=== PATIENT | female | born 1970 | race Caucasian/White ===

== ENCOUNTER 2016-10-23 00:38 | Emergency (ER) | payer OTHER ==
[~2016-10-23 00:38] MED LIST: ATARAX25 MG PO; COREG3.125 MG PO; DUONEB 2.5-0.5M1 AMP IH; GABAPENTIN600 MG PO; LASIX40 MG PO; LISINOPRIL 20MG20 MG PO; NITROQUIK SL0.4 MG PO; NOVOLIN R100 UNIT/2 SQ; PERCOCET 10/321 EACH PO; PHENERGAN25 M1 PO; VENTOLIN HFA IN18 GM IH; ZYLOPRIM300 MG PO
== END 2016-10-23 02:53 | disposition home or self-care (01) ==
LOC: FER 00:38
DX: M25.561 Pain in right knee (principal); J44.9 Chronic obstructive pulmonary disease, unspecified; E11.22 Type 2 diabetes mellitus with diabetic chronic kidney disease; N18.3 Chronic kidney disease, stage 3 (moderate); Z79.4 Long term (current) use of insulin; Z90.49 Acquired absence of other specified parts of digestive tract; Z90.710 Acquired absence of both cervix and uterus; Z88.1 Allergy status to other antibiotic agents; Z88.5 Allergy status to narcotic agent; Z91.041 Radiographic dye allergy status; Z88.0 Allergy status to penicillin; Z88.6 Allergy status to analgesic agent; Z79.899 Other long term (current) drug therapy
CPT/HCPCS: J1170

== ENCOUNTER 2017-02-23 21:05 | Inpatient (IN) | payer OTHER ==
[~2017-02-23] VITALS: Ht 165.1 cm; Wt 135.3 kg
[2017-02-24 00:38] LABS: ALBUMIN 4.2 g/dL (3.5-5.0); BILIRUBIN - TOTAL 0.6 mg/dL (0.1-1.0); GLOBULIN (CALCULATION) 2.9 g/dL (2.2-4.2); LACTIC ACID 1.2 mmol/L (0.5-2.2); TOTAL PROTEIN 7.1 g/dL (6.4-8.3)
[2017-02-24 00:40] LABS: CKMB 1.48 ng/mL (0.97-4.94); TROPONIN T < 0.010 ng/mL
[2017-02-24 01:22] LABS: PROTHROMBIN TIME 14.3 SECONDS (11.4-13.2); PTT 17.1 SECONDS (24.3-32.1)
[2017-02-24 01:23] LABS: INR 1.4 (0.9-1.2)
[2017-02-24 01:32] LABS: PRO-BNP 33 pg/mL (0-125)
[2017-02-24 03:31] LABS: BASOPHIL 0 % (0-2); EOSINOPHIL 0.2 % (0-5); HCT 34.6 % (37.0-47.0); LYMPHOCYTE 9.8 % (15-48); MCHC 31.8 g/dL (32.0-36.0); MCV 84.8 fL (78.0-100.0); MONOCYTE 0.3 % (0-12); MPV 9.9 fL (6.0-9.5); NEUTROPHIL 89.7 % (41-80); PLT 113 K/uL (150-400); RBC 4.08 M/uL (4.20-5.40); RDW 16.1 % (11.5-14.0); WBC 5.8 K/uL (4.0-10.5)
[2017-02-24 07:06] LABS: BASOPHIL 0 % (0-2); EOSINOPHIL 0 % (0-5); HCT 31.5 % (37.0-47.0); HGB 10.1 g/dl (12.5-16.0); LYMPHOCYTE 14.3 % (15-48); MCH 27.7 pg (25.0-31.0); MCHC 32.1 g/dL (32.0-36.0); MCV 86.5 fL (78.0-100.0); MONOCYTE 1.6 % (0-12); MPV 9.5 fL (6.0-9.5); NEUTROPHIL 84.1 % (41-80); PLT 96 K/uL (150-400); RBC 3.64 M/uL (4.20-5.40); RDW 16.1 % (11.5-14.0); WBC 4.3 K/uL (4.0-10.5)
[2017-02-24 07:15] LABS: INR 1.25 (0.9-1.2); PROTHROMBIN TIME 14.7 SECONDS (11.4-13.2)
[2017-02-24 07:22] LABS: ALBUMIN 3.6 g/dL (3.5-5.0); BILIRUBIN - TOTAL 0.3 mg/dL (0.1-1.0); CREATININE 0.9 mg/dL (0.5-1.0); GLOBULIN (CALCULATION) 2.8 g/dL (2.2-4.2); POTASSIUM 4.5 mmol/L (3.5-5.1); TOTAL PROTEIN 6.4 g/dL (6.4-8.3)
[2017-02-25 04:30] LABS: BASOPHIL 0 % (0-2); EOSINOPHIL 1.1 % (0-5); HCT 29.3 % (37.0-47.0); HGB 9.1 g/dl (12.5-16.0); LYMPHOCYTE 38.7 % (15-48); MCH 27.4 pg (25.0-31.0); MCHC 31.1 g/dL (32.0-36.0); MCV 88.3 fL (78.0-100.0); MONOCYTE 6.7 % (0-12); MPV 9.3 fL (6.0-9.5); NEUTROPHIL 53.5 % (41-80); PLT 79 K/uL (150-400); RBC 3.32 M/uL (4.20-5.40); RDW 15.9 % (11.5-14.0); WBC 3.8 K/uL (4.0-10.5)
[2017-02-25 04:48] LABS: ALBUMIN 3.9 g/dL (3.5-5.0); BILIRUBIN - TOTAL 0.3 mg/dL (0.1-1.0); CREATININE 0.9 mg/dL (0.5-1.0); GLOBULIN (CALCULATION) 2.3 g/dL (2.2-4.2); MAGNESIUM 2.19 mg/dL (1.40-2.10); POTASSIUM 3.5 mmol/L (3.5-5.1); TOTAL PROTEIN 6.2 g/dL (6.4-8.3)
[2017-02-25 14:40] LABS: NEUTROPHILS(M) 52 % (41-80)
[2017-02-25 14:41] LABS: LYMPHOCYTE(M) 36 % (15-48); MONOCYTE(M) 12 % (0-12); PLATELETS ON SMEAR DECREASED
[2017-02-26 10:03] LABS: BASOPHIL 0 % (0-2); HCT 27.8 % (37.0-47.0); HGB 8.5 g/dl (12.5-16.0); LYMPHOCYTE 31.5 % (15-48); MCH 27.5 pg (25.0-31.0); MCHC 30.6 g/dL (32.0-36.0); MONOCYTE 9.1 % (0-12); MPV 9.6 fL (6.0-9.5); NEUTROPHIL 56.4 % (41-80); PLT 69 K/uL (150-400); RBC 3.09 M/uL (4.20-5.40); RDW 15.7 % (11.5-14.0)
[2017-02-26 10:13] LABS: ALBUMIN 3.4 g/dL (3.5-5.0); BILIRUBIN - TOTAL 0.3 mg/dL (0.1-1.0); CREATININE 0.9 mg/dL (0.5-1.0); GLOBULIN (CALCULATION) 2.3 g/dL (2.2-4.2); POTASSIUM 4.7 mmol/L (3.5-5.1); TOTAL PROTEIN 5.7 g/dL (6.4-8.3)
[2017-02-26 11:55] LABS: BAND 2 % (0-10); EOSINOPHIL(M) 2 % (0-5); LYMPHOCYTE(M) 28 % (15-48); MONOCYTE(M) 2 % (0-12); NEUTROPHILS(M) 66 % (41-80); TOTAL CELL COUNT 50
[2017-02-26 11:56] LABS: ANISOCYTOSIS SLIGHT; PLATELET ESTIMATE DECREASED; PLATELET MORPHOLOGY NORMAL
[2017-02-26 12:03] LABS: HCT 30.9 % (37.0-47.0); HGB 9.2 g/dl (12.5-16.0); MCH 26.5 pg (25.0-31.0); MCHC 29.8 g/dL (32.0-36.0); MPV 9.3 fL (6.0-9.5); RBC 3.47 M/uL (4.20-5.40); RDW 15.8 % (11.5-14.0)
[2017-02-26 12:17] LABS: INR 1.14 (0.9-1.2); PROTHROMBIN TIME 13.7 SECONDS (11.4-13.2)
[2017-02-26 12:19] LABS: D-DIMER 1.94 ug/mLFEU (0.00-0.41)
[2017-02-26 12:20] LABS: WBC 2.5 K/uL (4.0-10.5)
== END 2017-02-26 17:20 | disposition other institution (70) | DRG 372 ==
LOC: FER 21:05 → FMS 02-24 02:40
PROVIDERS: Emergency Medicine Emergency Medical Services; Internal Medicine; ADMIT Internal Medicine
DX: A04.7 Enterocolitis due to Clostridium difficile (principal); Z68.42 Body mass index [BMI] 45.0-49.9, adult; I50.22 Chronic systolic (congestive) heart failure; K56.60 Unspecified intestinal obstruction; D69.6 Thrombocytopenia, unspecified; J98.11 Atelectasis; D64.9 Anemia, unspecified; Z86.718 Personal history of other venous thrombosis and embolism; K57.90 Diverticulosis of intestine, part unspecified, without perforation or abscess without bleeding; J44.9 Chronic obstructive pulmonary disease, unspecified; E11.9 Type 2 diabetes mellitus without complications; G47.33 Obstructive sleep apnea (adult) (pediatric); Z86.711 Personal history of pulmonary embolism; I73.81 Erythromelalgia; K74.60 Unspecified cirrhosis of liver; Z88.0 Allergy status to penicillin; Z88.8 Allergy status to other drugs, medicaments and biological substances; E66.01 Morbid (severe) obesity due to excess calories
CPT/HCPCS: 36415; 71010; 74000; 74020; 80053; 82150; 82550; 82553; 82962; 83605; 83690; 83735; 83880; 84100; 84484; 85025; 85379; 85610; 85730; 87040; 87045; 87046; 87205; 87328; 87337; 87493; 93005; 94640; 94660; 94762; 96372; C9113; J0500; J1170; J1644; J1815; J2060; J2930; J3010; J3243; J3360

== ENCOUNTER 2020-06-06 14:41 | Day surgery (SDCO) | payer OTHER ==
[~2020-06-06] VITALS: Ht 165.1 cm; Wt 116.8 kg
[~2020-06-06 14:41] MED LIST changes: +ALDACTONE100 MG PO; +ALLOPURINOL300 MG PO; +AMMONIUM LACTA225 GM TOP; +BACTROBAN NASAL1 GM TOP; +BUMETANIDE2 MG PO; +CLEOCIN300 MG PO; +COMBIVENT RESPIM4 GM INH; +COREG 6.25MG6.25 MG PO; +DEPAKOTE250 MG PO; +DIFLUCAN 100MG100 MG PO; +DUONEB 2.5-0.5M1 AMP NEB; +ELIQUIS2.5 MG PO; +HUMALOG100 UNIT/1 SC; +K-DUR20 MEQ PO; +KLONOPIN1 MG PO; +LANTUS **100 UNITS/ SC; +LASIX80 MG PO; +LEVAQUIN750 MG PO; +LEVEMIR VI100 UNITS/ SC; +MAG-OXIDE 400M400 MG PO; +NITROSTAT0.4 MG SL; +NOVOLIN SC; +OXY-IR 5MG5 MG PO; +OXYCODONE HCL15 MG PO; +PERCOCET 10-321 EACH PO; +PREDNISONE 20MG20 MG PO; +PREDNISONE5 MG PO; +PROMETHAZINE HC25 MG PR; +PROTONIX 40MG T40 MG PO; +VISTARIL25 MG PO; +WELCHOL625 MG PO
[2020-06-06 16:08] LABS: BASOPHIL 0.6 % (0-2); EOSINOPHIL 0.7 % (0-5); HCT 41.1 % (37.0-47.0); LYMPHOCYTE 19.9 % (15-48); MCH 26.6 pg (25.0-31.0); MCHC 31.6 g/dL (32.0-36.0); MCV 84.2 fL (78.0-100.0); MONOCYTE 6.7 % (0-12); MPV 10.5 fL (6.0-9.5); NEUTROPHIL 71.7 % (41-80); NRBC 0; PLT 124 K/uL (150-400); RBC 4.88 M/uL (4.20-5.40); RDW 15.5 % (11.5-14.0); WBC 7.1 K/uL (4.0-10.5)
[2020-06-06 16:09] LABS: BILIRUBIN NEGATIVE (NEGATIVE); BLOOD NEGATIVE Ery/uL (NEGATIVE); CLARITY CLEAR (CLEAR); COLOR YELLOW (YELLOW); GLUCOSE (U) 1+ mg/dL (NORMAL); LEUKOCYTES NEGATIVE Leu/uL (NEGATIVE); NITRITE NEGATIVE (NEGATIVE); PROTEIN 2+ mg/dL (NEGATIVE); UROBILINOGEN 0.2 mg/dL (0.2-1.0)
[2020-06-06 16:20] LABS: INR 1.12 (0.9-1.2); PROTHROMBIN TIME 13.7 SECONDS (11.4-13.6); PTT 25.4 SECONDS (22.2-34.7)
[2020-06-06 16:25] LABS: BILIRUBIN - TOTAL 0.6 mg/dL (0.2-1.0); BUN/CREAT RATIO (CALC) 18.6 RATIO; CREATININE 1.02 mg/dL (0.51-0.95); GLOBULIN (CALCULATION) 3.2 g/dL; POTASSIUM 3.6 mmol/L (3.5-5.1); TOTAL PROTEIN 7.2 g/dL (6.4-8.2)
[2020-06-06 16:40] LABS: SQUAMOUS EPITHELIAL CELLS RARE
[2020-06-06] MEDS ORDERED: BASAGLAR (23:58)
[2020-06-07] MEDS ORDERED: OXYCODONE HCL10 MG PO
[2020-06-07 06:06] LABS: BASOPHIL 0.4 % (0-2); EOSINOPHIL 1.7 % (0-5); HCT 37.7 % (37.0-47.0); HGB 11.7 g/dl (12.5-16.0); LYMPHOCYTE 25.5 % (15-48); MCH 26.8 pg (25.0-31.0); MCV 86.5 fL (78.0-100.0); MONOCYTE 5.1 % (0-12); MPV 10.7 fL (6.0-9.5); NEUTROPHIL 66.9 % (41-80); NRBC 0; PLT 107 K/uL (150-400); RBC 4.36 M/uL (4.20-5.40); RDW 15.9 % (11.5-14.0); WBC 6.9 K/uL (4.0-10.5)
[2020-06-07 06:58] LABS: ALBUMIN 3.2 g/dL (3.4-5.0); BILIRUBIN - TOTAL 0.3 mg/dL (0.2-1.0); BUN/CREAT RATIO (CALC) 19.6 RATIO; CREATININE 1.12 mg/dL (0.51-0.95); GLOBULIN (CALCULATION) 3.3 g/dL; POTASSIUM 3.7 mmol/L (3.5-5.1); TOTAL PROTEIN 6.5 g/dL (6.4-8.2)
--- NOTE | 2020-06-07 15:02 | NUR ---
PT IS A HIGH RISK FOR READMISSION PER LACE SCORE OVER 24. PLEASE ADVISE OF ANY D/C NEEDS
--- NOTE | 2020-06-07 15:03 | NUR ---
PT REPORTS SHE LIVES WITH SPOUSE SHE IS INDEPENDENT WITH ADL;S PT DOES HAVE A HIGH LACE SCORE DUE TO MULTIPLE COMORBITITIES
[2020-06-08 05:37] LABS: BASOPHIL 0.4 % (0-2); EOSINOPHIL 2.9 % (0-5); HCT 34.7 % (37.0-47.0); HGB 10.8 g/dl (12.5-16.0); LYMPHOCYTE 24.5 % (15-48); MCH 26.7 pg (25.0-31.0); MCHC 31.1 g/dL (32.0-36.0); MCV 85.9 fL (78.0-100.0); MONOCYTE 7.5 % (0-12); MPV 10.8 fL (6.0-9.5); NEUTROPHIL 64.3 % (41-80); NRBC 0; RBC 4.04 M/uL (4.20-5.40); RDW 15.3 % (11.5-14.0); WBC 5.6 K/uL (4.0-10.5)
[2020-06-08 05:49] LABS: PLT 86 K/uL (150-400)
[2020-06-08 05:59] LABS: ALBUMIN 2.9 g/dL (3.4-5.0); BILIRUBIN - TOTAL 0.4 mg/dL (0.2-1.0); BUN/CREAT RATIO (CALC) 19.1 RATIO; CREATININE 1.1 mg/dL (0.51-0.95); GLOBULIN (CALCULATION) 2.9 g/dL; TOTAL PROTEIN 5.8 g/dL (6.4-8.2)
--- NOTE | 2020-06-08 14:37 | NUR ---
PATIENT REQUESTED TO SEE CHARGE NURSE, STATED THAT THE NURSE NURA WAS "RUFF" WHEN ASKED BY CHARGE NURSE HOW WAS NURA JUANA PATIENT STATED THAT NURA JUST DIDN'T TALK TO HER NICE. SHE WAS TOLD BY THAT SHE WAS BEING DISCHARGED PRIOR TO THIS COMPLANT. HOUSE WAS NOTIFIED, PATIENT REQUEST TO SEE MD FOR ONE TIME DOSE OF PHENAGREN, AND BENADRYL. MD ORDERED BOTH ONE TIME DOSES. PATIENT STATED SHE WOULD CALL HER TO COME GET HER.
--- NOTE | 2020-06-08 16:44 | NUR ---
06/08/20 A referral was made to [facility] at the time of discharge on 05/05/2020. [facility] reports patient did not response to multiple phone calls to arrange a visit. No new HHR referrals were received at the time of discharge.
== END 2020-06-08 16:36 | disposition home or self-care (01) ==
LOC: FER 14:41 → FMS 20:46
PROVIDERS: Emergency Medicine; Nurse Practitioner; Nurse Practitioner Adult Health; ADMIT Internal Medicine
DX: R07.89 Other chest pain (principal); E11.65 Type 2 diabetes mellitus with hyperglycemia; E11.22 Type 2 diabetes mellitus with diabetic chronic kidney disease; N18.30 Chronic kidney disease, stage 3 unspecified; I50.9 Heart failure, unspecified; I25.10 Atherosclerotic heart disease of native coronary artery without angina pectoris; G47.33 Obstructive sleep apnea (adult) (pediatric); G89.4 Chronic pain syndrome; K59.00 Constipation, unspecified; R06.02 Shortness of breath; R79.1 Abnormal coagulation profile; I25.2 Old myocardial infarction; F41.1 Generalized anxiety disorder; Z20.828 Contact with and (suspected) exposure to other viral communicable diseases; F32.9 Major depressive disorder, single episode, unspecified; K21.9 Gastro-esophageal reflux disease without esophagitis; E11.40 Type 2 diabetes mellitus with diabetic neuropathy, unspecified; E11.43 Type 2 diabetes mellitus with diabetic autonomic (poly)neuropathy; K31.84 Gastroparesis; M10.9 Gout, unspecified; J44.9 Chronic obstructive pulmonary disease, unspecified; E66.9 Obesity, unspecified; Z68.41 Body mass index [BMI] 40.0-44.9, adult; Z86.73 Personal history of transient ischemic attack (TIA), and cerebral infarction without residual deficits; Z91.14 Patient's other noncompliance with medication regimen; Z79.01 Long term (current) use of anticoagulants; Z79.4 Long term (current) use of insulin; Z79.899 Other long term (current) drug therapy; Z88.0 Allergy status to penicillin; Z88.1 Allergy status to other antibiotic agents; Z88.6 Allergy status to analgesic agent; Z88.8 Allergy status to other drugs, medicaments and biological substances; Z91.041 Radiographic dye allergy status; Z99.81 Dependence on supplemental oxygen; Z90.5 Acquired absence of kidney
CPT/HCPCS: 36415; 70450; 71045; 74022; 80053; 81001; 82962; 83880; 84484; 85025; 85379; 85610; 85730; 93005; G0378; J1170; J1200; J2550; Q0169; U0002

== ENCOUNTER 2020-06-21 19:09 | Emergency (ER) | payer OTHER ==
[~2020-06-21 19:09] MED LIST changes: +BASAGLAR; +OXYCODONE HCL10 MG PO
[2020-06-21 20:49] LABS: BASOPHIL 0.2 % (0-2); EOSINOPHIL 4.5 % (0-5); HCT 33.5 % (37.0-47.0); HGB 10.9 g/dl (12.5-16.0); LYMPHOCYTE 24.4 % (15-48); MCH 27.5 pg (25.0-31.0); MCHC 32.5 g/dL (32.0-36.0); MCV 84.6 fL (78.0-100.0); MONOCYTE 5.7 % (0-12); MPV 11.3 fL (6.0-9.5); NEUTROPHIL 64.8 % (41-80); NRBC 0; RBC 3.96 M/uL (4.20-5.40); WBC 5.1 K/uL (4.0-10.5)
[2020-06-21 20:51] LABS: INR 1.19 (0.9-1.2); PROTHROMBIN TIME 14.3 SECONDS (11.4-13.6); PTT 27.9 SECONDS (22.2-34.7)
[2020-06-21 20:52] LABS: ALBUMIN 3.1 g/dL (3.4-5.0); BILIRUBIN - TOTAL 0.4 mg/dL (0.2-1.0); BUN/CREAT RATIO (CALC) 8.2 RATIO; C-REACTIVE PROTEIN 3.6 mg/dL (<=0.90); CREATININE 0.85 mg/dL (0.51-0.95); GLOBULIN (CALCULATION) 3.6 g/dL; POTASSIUM 3.8 mmol/L (3.5-5.1); TOTAL PROTEIN 6.7 g/dL (6.4-8.2)
[2020-06-21 20:54] LABS: PLT 99 K/uL (150-400)
[2020-06-21 20:55] LABS: LACTIC ACID 1.7 mmol/L (0.4-1.9)
[2020-06-21 21:01] LABS: PRO-BNP 298 pg/mL (<125)
[2020-06-21 21:27] LABS: BILIRUBIN NEGATIVE (NEGATIVE); BLOOD NEGATIVE Ery/uL (NEGATIVE); CLARITY CLEAR (CLEAR); COLOR YELLOW (YELLOW); GLUCOSE (U) 1+ mg/dL (NORMAL); LEUKOCYTES NEGATIVE Leu/uL (NEGATIVE); NITRITE NEGATIVE (NEGATIVE); PROTEIN 2+ mg/dL (NEGATIVE); UROBILINOGEN 0.2 mg/dL (0.2-1.0)
[2020-06-21 21:36] LABS: BACTERIA TRACE
== END 2020-06-21 22:18 | disposition home or self-care (01) ==
LOC: FER 19:09
PROVIDERS: Emergency Medicine
DX: I11.0 Hypertensive heart disease with heart failure (principal); I50.9 Heart failure, unspecified; J44.9 Chronic obstructive pulmonary disease, unspecified; I25.10 Atherosclerotic heart disease of native coronary artery without angina pectoris; E11.9 Type 2 diabetes mellitus without complications; E66.9 Obesity, unspecified; Z99.81 Dependence on supplemental oxygen; Z79.899 Other long term (current) drug therapy; Z88.0 Allergy status to penicillin; Z88.1 Allergy status to other antibiotic agents; Z88.5 Allergy status to narcotic agent; Z88.6 Allergy status to analgesic agent; Z88.8 Allergy status to other drugs, medicaments and biological substances; Z91.041 Radiographic dye allergy status
CPT/HCPCS: 36415; 36600; 71045; 80053; 81001; 82803; 83605; 83880; 84484; 85025; 85610; 85730; 86140; J1170; J1642; J2550

== ENCOUNTER 2020-06-22 22:30 | Emergency (ER) | payer OTHER ==
[2020-06-23 00:49] LABS: BASOPHIL 0.4 % (0-2); HCT 34.5 % (37.0-47.0); HGB 11.1 g/dl (12.5-16.0); MCH 26.8 pg (25.0-31.0); MCHC 32.2 g/dL (32.0-36.0); MCV 83.3 fL (78.0-100.0); MONOCYTE 5.8 % (0-12); MPV 10.6 fL (6.0-9.5); NEUTROPHIL 66.4 % (41-80); NRBC 0; PLT 99 K/uL (150-400); RBC 4.14 M/uL (4.20-5.40); RDW 15.3 % (11.5-14.0); WBC 5.6 K/uL (4.0-10.5)
[2020-06-23 00:52] LABS: INR 1.17 (0.9-1.2); PROTHROMBIN TIME 14.1 SECONDS (11.4-13.6)
[2020-06-23 01:00] LABS: ALBUMIN 3.2 g/dL (3.4-5.0); BILIRUBIN - TOTAL 0.3 mg/dL (0.2-1.0); BUN/CREAT RATIO (CALC) 8.3 RATIO; CREATININE 0.96 mg/dL (0.51-0.95); GLOBULIN (CALCULATION) 3.5 g/dL; POTASSIUM 3.4 mmol/L (3.5-5.1); TOTAL PROTEIN 6.7 g/dL (6.4-8.2)
[2020-06-23 01:09] LABS: PRO-BNP 62 pg/mL (<125)
== END 2020-06-23 03:45 | disposition home or self-care (01) ==
LOC: FER 22:30
PROVIDERS: Emergency Medicine
DX: I50.9 Heart failure, unspecified (principal); D69.6 Thrombocytopenia, unspecified; E11.22 Type 2 diabetes mellitus with diabetic chronic kidney disease; N18.4 Chronic kidney disease, stage 4 (severe); J44.9 Chronic obstructive pulmonary disease, unspecified; Z79.01 Long term (current) use of anticoagulants; Z99.81 Dependence on supplemental oxygen; Z88.0 Allergy status to penicillin; Z88.1 Allergy status to other antibiotic agents; Z88.6 Allergy status to analgesic agent; Z88.5 Allergy status to narcotic agent; Z91.041 Radiographic dye allergy status; Z91.040 Latex allergy status
CPT/HCPCS: 36415; 71045; 80053; 83880; 84484; 85025; 85610; 93005; J1642; J2550

== ENCOUNTER 2020-07-04 23:33 | Inpatient (IN) | payer OTHER ==
[~2020-07-04] VITALS: Ht 165.1 cm; Wt 126.3 kg
[2020-07-05 01:10] LABS: CORONAVIRUS 2019 SARS-COV-2 NEGATIVE (NEGATIVE); INFLUENZA A NAA NEGATIVE (NEGATIVE)
[2020-07-05 03:22] LABS: BILIRUBIN NEGATIVE (NEGATIVE); BLOOD NEGATIVE Ery/uL (NEGATIVE); CLARITY CLEAR (CLEAR); COLOR YELLOW (YELLOW); GLUCOSE (U) 1+ mg/dL (NORMAL); LEUKOCYTES TRACE Leu/uL (NEGATIVE); NITRITE NEGATIVE (NEGATIVE); PROTEIN 2+ mg/dL (NEGATIVE); UROBILINOGEN 0.2 mg/dL (0.2-1.0); pH 7.5 (5.0-9.0)
[2020-07-05 03:24] LABS: BASOPHIL 0.3 % (0-2); EOSINOPHIL 2.7 % (0-5); HCT 33.2 % (37.0-47.0); HGB 10.3 g/dl (12.5-16.0); LYMPHOCYTE 17.8 % (15-48); MCH 26.9 pg (25.0-31.0); MCV 86.7 fL (78.0-100.0); MONOCYTE 5.8 % (0-12); MPV 10.6 fL (6.0-9.5); NEUTROPHIL 72.9 % (41-80); NRBC 0; RBC 3.83 M/uL (4.20-5.40); RDW 15.5 % (11.5-14.0); WBC 6.4 K/uL (4.0-10.5)
[2020-07-05 03:30] LABS: BACTERIA 2+; YEAST PRESENT
[2020-07-05 03:31] LABS: AMORPHOUS URATES CRYSTALS TRACE
[2020-07-05 03:41] LABS: PLT 69 K/uL (150-400)
[2020-07-05 03:44] LABS: PRO-BNP 74 pg/mL (<125)
[2020-07-05 03:59] LABS: ALBUMIN 2.6 g/dL (3.4-5.0); BILIRUBIN - TOTAL 0.3 mg/dL (0.2-1.0); CREATININE 0.66 mg/dL (0.51-0.95); GLOBULIN (CALCULATION) 2.7 g/dL; POTASSIUM 3.3 mmol/L (3.5-5.1); TOTAL PROTEIN 5.3 g/dL (6.4-8.2)
[2020-07-05 08:38] LABS: RETICULOCYTE COUNT 2.8 % (1.0-2.0)
[2020-07-05 09:00] LABS: IRON % SATURATION 13.1 %SAT (20-50)
[2020-07-05 11:28] LABS: FOLIC ACID (SERUM) 4.2 ng/mL (8.6-58.9)
--- NOTE | 2020-07-05 12:48 | NUR ---
07/05/20 Ms. Chilel lives at home with her spouse. She has a rollator, trilogy, 02, w/c, and 3in1. A referral was made to [facility] per patient choice in anticipation of discharge on 07/06. Affliation explained. Report given to SYEDA Hercules RN.
[2020-07-05 18:26] LABS: BUN/CREAT RATIO (CALC) 22.4 RATIO; CREATININE 0.85 mg/dL (0.51-0.95); POTASSIUM 5.2 mmol/L (3.5-5.1)
[2020-07-06 05:52] LABS: BASOPHIL 0.1 % (0-2); EOSINOPHIL 0.3 % (0-5); HGB 9.8 g/dl (12.5-16.0); LYMPHOCYTE 15.5 % (15-48); MCH 27.1 pg (25.0-31.0); MCHC 31.6 g/dL (32.0-36.0); MCV 85.6 fL (78.0-100.0); MPV 11.1 fL (6.0-9.5); NEUTROPHIL 75.8 % (41-80); RBC 3.62 M/uL (4.20-5.40); RDW 15.3 % (11.5-14.0); WBC 6.7 K/uL (4.0-10.5)
[2020-07-06 06:00] LABS: PLT 64 K/uL (150-400)
[2020-07-06 06:11] LABS: PRO-BNP 342 pg/mL (<125)
[2020-07-06 06:36] LABS: BUN/CREAT RATIO (CALC) 19.4 RATIO; CREATININE 0.98 mg/dL (0.51-0.95); POTASSIUM 4.1 mmol/L (3.5-5.1)
[2020-07-06 07:00] LABS: BAND 2 % (0-10); LYMPHOCYTE(M) 19 % (15-48); MONOCYTE(M) 3 % (0-12); NEUTROPHILS(M) 76 % (41-80); TOTAL CELL COUNT 100
[2020-07-06 07:01] LABS: NRBC 0; PLATELET ESTIMATE DECREASED; PLATELET MORPHOLOGY NORMAL
[2020-07-06] MEDS ORDERED: KLONOPIN1 MG PO (11:55)
[2020-07-06] MEDS ORDERED: NYSTATIN SUSP1 ML/ML SSP (11:55)
[2020-07-06] MEDS ORDERED: DULERA 200 MCG8.8 GM INH (11:55)
[2020-07-06] MEDS ORDERED: FOLIC ACID1 M1 PO (11:55)
[2020-07-06] MEDS ORDERED: CLEOCIN300 MG PO (11:55)
--- NOTE | 2020-07-06 14:45 | NUR ---
PT ESCORTED VIA WHEELCHAIR W/ O2 & BELONGINGS TO MAIN EXIT BY HC STAFF @ [id number]
== END 2020-07-06 14:30 | disposition home or self-care (01) | DRG 191 ==
LOC: FER 23:33 → FICU 07-05 04:34 → FTCU 07-05 04:34 → FICU 07-05 05:10 → FTCU 07-05 08:13
PROVIDERS: Hospitalist; Student in an Organized Health Care Education/Training Program; ADMIT Internal Medicine
DX: J44.1 Chronic obstructive pulmonary disease with (acute) exacerbation (principal); J96.10 Chronic respiratory failure, unspecified whether with hypoxia or hypercapnia; N30.00 Acute cystitis without hematuria; B37.0 Candidal stomatitis; N18.4 Chronic kidney disease, stage 4 (severe); I50.32 Chronic diastolic (congestive) heart failure; Z68.41 Body mass index [BMI] 40.0-44.9, adult; I13.0 Hypertensive heart and chronic kidney disease with heart failure and stage 1 through stage 4 chronic kidney disease, or unspecified chronic kidney disease; F41.9 Anxiety disorder, unspecified; D50.9 Iron deficiency anemia, unspecified; D69.6 Thrombocytopenia, unspecified; I48.0 Paroxysmal atrial fibrillation; K74.60 Unspecified cirrhosis of liver; E66.01 Morbid (severe) obesity due to excess calories; E87.6 Hypokalemia; E11.22 Type 2 diabetes mellitus with diabetic chronic kidney disease; G89.29 Other chronic pain; M54.2 Cervicalgia; Z20.822 Contact with and (suspected) exposure to COVID-19; M54.9 Dorsalgia, unspecified; G47.33 Obstructive sleep apnea (adult) (pediatric); E78.5 Hyperlipidemia, unspecified; M19.90 Unspecified osteoarthritis, unspecified site; K21.9 Gastro-esophageal reflux disease without esophagitis; F32.9 Major depressive disorder, single episode, unspecified; Z79.01 Long term (current) use of anticoagulants; Z86.711 Personal history of pulmonary embolism; Z86.718 Personal history of other venous thrombosis and embolism; Z88.0 Allergy status to penicillin; Z88.1 Allergy status to other antibiotic agents; Z88.8 Allergy status to other drugs, medicaments and biological substances; Z90.49 Acquired absence of other specified parts of digestive tract; Z98.890 Other specified postprocedural states; Z90.710 Acquired absence of both cervix and uterus; Z87.891 Personal history of nicotine dependence
CPT/HCPCS: 36415; 36600; 71045; 80048; 80053; 81001; 82607; 82728; 82746; 82803; 82962; 83036; 83540; 83550; 83880; 84484; 85025; 87088; 94010; 94640; 94664; 94762; J1040; J1956; J2550; J2916; J2930; J3370; J3420; J7040; U0002

== ENCOUNTER 2020-07-07 21:25 | Emergency (ER) | payer OTHER ==
[~2020-07-07 21:25] MED LIST changes: +DULERA 200 MCG8.8 GM INH; +FOLIC ACID1 M1 PO; +NYSTATIN SUSP1 ML/ML SSP
[2020-07-08 00:43] LABS: BASOPHIL 0.3 % (0-2); HCT 36.2 % (37.0-47.0); HGB 11.2 g/dl (12.5-16.0); LYMPHOCYTE 23.9 % (15-48); MCH 27.5 pg (25.0-31.0); MCHC 30.9 g/dL (32.0-36.0); MCV 88.7 fL (78.0-100.0); MONOCYTE 6.9 % (0-12); MPV 10.4 fL (6.0-9.5); NEUTROPHIL 65.8 % (41-80); NRBC 0; PLT 94 K/uL (150-400); RBC 4.08 M/uL (4.20-5.40); RDW 15.9 % (11.5-14.0); WBC 6.5 K/uL (4.0-10.5)
[2020-07-08 00:58] LABS: ALBUMIN 3.3 g/dL (3.4-5.0); BILIRUBIN - TOTAL 0.3 mg/dL (0.2-1.0); BUN/CREAT RATIO (CALC) 21.6 RATIO; CREATININE 1.02 mg/dL (0.51-0.95); GLOBULIN (CALCULATION) 3.3 g/dL; POTASSIUM 3.7 mmol/L (3.5-5.1); TOTAL PROTEIN 6.6 g/dL (6.4-8.2)
[2020-07-08 01:06] LABS: PRO-BNP 45 pg/mL (<125)
[2020-07-08] MEDS ORDERED: PHENERGAN25 M1 PO (03:06)
[2020-07-08] MEDS ORDERED: ATARAX25 MG PO (03:06)
== END 2020-07-08 03:40 | disposition home or self-care (01) ==
LOC: FER 21:25
PROVIDERS: Emergency Medicine Emergency Medical Services
DX: J44.9 Chronic obstructive pulmonary disease, unspecified (principal); R07.89 Other chest pain; R00.2 Palpitations; I50.9 Heart failure, unspecified; N18.9 Chronic kidney disease, unspecified; Z99.81 Dependence on supplemental oxygen; Z88.0 Allergy status to penicillin; Z88.1 Allergy status to other antibiotic agents; Z88.5 Allergy status to narcotic agent; Z88.8 Allergy status to other drugs, medicaments and biological substances; Z88.6 Allergy status to analgesic agent; Z91.040 Latex allergy status; Z91.041 Radiographic dye allergy status
CPT/HCPCS: 36415; 71250; 80053; 83605; 83880; 84484; 85025; 93005; 94640; 94664; J1170; J1200; J2550; J2930

== ENCOUNTER 2020-07-14 19:38 | Emergency (ER) | payer OTHER ==
[2020-07-14 21:25] LABS: BASOPHIL 0.3 % (0-2); EOSINOPHIL 1.7 % (0-5); HCT 36.2 % (37.0-47.0); HGB 11.5 g/dl (12.5-16.0); LYMPHOCYTE 25.1 % (15-48); MCH 27.3 pg (25.0-31.0); MCHC 31.8 g/dL (32.0-36.0); MONOCYTE 5.4 % (0-12); MPV 10.7 fL (6.0-9.5); NEUTROPHIL 67.1 % (41-80); NRBC 0; RBC 4.21 M/uL (4.20-5.40); RDW 16.9 % (11.5-14.0); WBC 7.1 K/uL (4.0-10.5)
[2020-07-14 21:26] LABS: PLT 78 K/uL (150-400)
[2020-07-14 21:45] LABS: BUN/CREAT RATIO (CALC) 12.9 RATIO; CREATININE 0.93 mg/dL (0.51-0.95); POTASSIUM 4.2 mmol/L (3.5-5.1)
[2020-07-14 22:00] LABS: CORONAVIRUS 2019 SARS-COV-2 NEGATIVE (NEGATIVE); INFLUENZA A NAA NEGATIVE (NEGATIVE)
== END 2020-07-15 05:50 | disposition home or self-care (01) ==
LOC: FER 19:38
PROVIDERS: Nurse Practitioner Family
DX: M79.18 Myalgia, other site (principal); G89.4 Chronic pain syndrome; R06.02 Shortness of breath; R06.2 Wheezing; J44.9 Chronic obstructive pulmonary disease, unspecified; E11.22 Type 2 diabetes mellitus with diabetic chronic kidney disease; N18.9 Chronic kidney disease, unspecified; I50.9 Heart failure, unspecified; Z20.822 Contact with and (suspected) exposure to COVID-19
CPT/HCPCS: 36415; 71045; 71250; 80048; 83880; 84484; 85025; 94640; 94664; J1170; J1642; J2550; U0002

== ENCOUNTER 2020-07-18 20:01 | Emergency (ER) | payer OTHER ==
[2020-07-18 20:56] LABS: BASOPHIL 0.4 % (0-2); EOSINOPHIL 2.7 % (0-5); HCT 33.4 % (37.0-47.0); HGB 10.8 g/dl (12.5-16.0); LYMPHOCYTE 20.9 % (15-48); MCH 27.8 pg (25.0-31.0); MCHC 32.3 g/dL (32.0-36.0); MCV 85.9 fL (78.0-100.0); MONOCYTE 5.4 % (0-12); MPV 10.5 fL (6.0-9.5); NEUTROPHIL 70.4 % (41-80); NRBC 0; RBC 3.89 M/uL (4.20-5.40); RDW 17.3 % (11.5-14.0); WBC 5.2 K/uL (4.0-10.5)
[2020-07-18 21:13] LABS: PLT 68 K/uL (150-400)
[2020-07-18 21:26] LABS: BUN/CREAT RATIO (CALC) 14.5 RATIO; CREATININE 0.83 mg/dL (0.51-0.95)
[2020-07-18 21:33] LABS: PRO-BNP 33 pg/mL (<125)
== END 2020-07-19 01:45 | disposition other institution (70) ==
LOC: FER 20:01
PROVIDERS: Emergency Medicine Emergency Medical Services
DX: J44.1 Chronic obstructive pulmonary disease with (acute) exacerbation (principal); G89.29 Other chronic pain; E11.22 Type 2 diabetes mellitus with diabetic chronic kidney disease; N18.9 Chronic kidney disease, unspecified; I50.30 Unspecified diastolic (congestive) heart failure; J44.9 Chronic obstructive pulmonary disease, unspecified; E66.9 Obesity, unspecified; Z99.81 Dependence on supplemental oxygen; Z88.5 Allergy status to narcotic agent; Z88.1 Allergy status to other antibiotic agents; Z88.6 Allergy status to analgesic agent; Z91.040 Latex allergy status; Z88.8 Allergy status to other drugs, medicaments and biological substances; Z79.4 Long term (current) use of insulin
CPT/HCPCS: 36415; 36600; 71045; 80048; 82803; 83880; 84484; 85025; 93005; 94640; 94664; J1170; J1200; J2550; J2930

== ENCOUNTER 2020-07-30 18:12 | Emergency (ER) | payer OTHER ==
[2020-07-30 19:17] LABS: BASOPHIL 0.3 % (0-2); EOSINOPHIL 1.7 % (0-5); HCT 37.4 % (37.0-47.0); LYMPHOCYTE 18.8 % (15-48); MCH 27.8 pg (25.0-31.0); MCHC 32.1 g/dL (32.0-36.0); MCV 86.6 fL (78.0-100.0); MONOCYTE 5.1 % (0-12); MPV 10.2 fL (6.0-9.5); NEUTROPHIL 73.5 % (41-80); NRBC 0; PLT 89 K/uL (150-400); RBC 4.32 M/uL (4.20-5.40); WBC 6.4 K/uL (4.0-10.5)
[2020-07-30 19:27] LABS: INR 1.09 (0.9-1.2); PROTHROMBIN TIME 13.4 SECONDS (11.4-13.6); PTT 24.6 SECONDS (22.2-34.7)
[2020-07-30 19:38] LABS: ALBUMIN 3.3 g/dL (3.4-5.0); BILIRUBIN - TOTAL 0.4 mg/dL (0.2-1.0); BUN/CREAT RATIO (CALC) 13.4 RATIO; CREATININE 0.82 mg/dL (0.51-0.95); POTASSIUM 3.9 mmol/L (3.5-5.1); TOTAL PROTEIN 6.3 g/dL (6.4-8.2)
[2020-07-30] MEDS ORDERED: PROMETHAZINE-C473 ML PO (21:48)
== END 2020-07-30 22:00 | disposition home or self-care (01) ==
LOC: FER 18:12
PROVIDERS: Emergency Medicine
DX: J44.1 Chronic obstructive pulmonary disease with (acute) exacerbation (principal); R07.89 Other chest pain; E11.22 Type 2 diabetes mellitus with diabetic chronic kidney disease; N18.9 Chronic kidney disease, unspecified; I50.9 Heart failure, unspecified; Z88.0 Allergy status to penicillin; Z88.1 Allergy status to other antibiotic agents; Z88.6 Allergy status to analgesic agent; Z91.040 Latex allergy status
CPT/HCPCS: 36415; 36600; 71045; 80053; 82803; 83605; 83880; 84484; 85025; 85610; 85730; 87040; 87077; 87186; 93005; J1170; J2270; J2405; J2550; J2930; J7040

== ENCOUNTER 2020-08-02 21:15 | Emergency (ER) | payer OTHER ==
[~2020-08-02 21:15] MED LIST changes: +PROMETHAZINE-C473 ML PO
[2020-08-02 23:25] LABS: BASOPHIL 0.3 % (0-2); EOSINOPHIL 1.8 % (0-5); HCT 39.9 % (37.0-47.0); LYMPHOCYTE 25.1 % (15-48); MCH 27.6 pg (25.0-31.0); MCHC 32.6 g/dL (32.0-36.0); MCV 84.7 fL (78.0-100.0); MONOCYTE 5.5 % (0-12); MPV 10.9 fL (6.0-9.5); NEUTROPHIL 66.5 % (41-80); NRBC 0; PLT 109 K/uL (150-400); RBC 4.71 M/uL (4.20-5.40); RDW 17.4 % (11.5-14.0)
[2020-08-02 23:43] LABS: ALBUMIN 3.3 g/dL (3.4-5.0); BILIRUBIN - TOTAL 0.4 mg/dL (0.2-1.0); BUN/CREAT RATIO (CALC) 18.3 RATIO; CREATININE 0.82 mg/dL (0.51-0.95); GLOBULIN (CALCULATION) 3.7 g/dL; POTASSIUM 3.8 mmol/L (3.5-5.1)
[2020-08-02 23:55] LABS: PRO-BNP 35 pg/mL (<125)
[2020-08-03] MEDS ORDERED: VALIUM10 MG PO (02:15)
== END 2020-08-03 02:23 | disposition home or self-care (01) ==
LOC: FER 21:15
PROVIDERS: Emergency Medicine Emergency Medical Services
DX: E09.65 Drug or chemical induced diabetes mellitus with hyperglycemia (principal); T38.0X5A Adverse effect of glucocorticoids and synthetic analogues, initial encounter; J44.9 Chronic obstructive pulmonary disease, unspecified; F41.9 Anxiety disorder, unspecified; F32.9 Major depressive disorder, single episode, unspecified; I10 Essential (primary) hypertension; Z99.81 Dependence on supplemental oxygen; Z88.8 Allergy status to other drugs, medicaments and biological substances; Z88.0 Allergy status to penicillin; Z88.6 Allergy status to analgesic agent; Z88.5 Allergy status to narcotic agent; Z91.040 Latex allergy status; Z91.041 Radiographic dye allergy status; Z79.4 Long term (current) use of insulin
CPT/HCPCS: 36415; 36600; 71045; 80053; 82009; 82803; 83880; 84484; 85025; 93005; 94640; 94664; J1170; J1200; J1642; J2550; J3360

== ENCOUNTER 2020-08-07 23:19 | Day surgery (SDCO) | payer OTHER ==
[~2020-08-07] VITALS: Ht 165.1 cm; Wt 122.6 kg
[~2020-08-07 23:19] MED LIST changes: +VALIUM10 MG PO
[2020-08-08 00:29] LABS: BASOPHIL 0.4 % (0-2); EOSINOPHIL 1.6 % (0-5); HCT 31.9 % (37.0-47.0); HGB 10.4 g/dl (12.5-16.0); LYMPHOCYTE 28.9 % (15-48); MCH 27.7 pg (25.0-31.0); MCHC 32.6 g/dL (32.0-36.0); MCV 84.8 fL (78.0-100.0); MONOCYTE 6.2 % (0-12); MPV 11.1 fL (6.0-9.5); NEUTROPHIL 62.5 % (41-80); NRBC 0; RBC 3.76 M/uL (4.20-5.40); RDW 17.3 % (11.5-14.0)
[2020-08-08 00:31] LABS: PLT 74 K/uL (150-400)
[2020-08-08 00:38] LABS: INR 1.18 (0.9-1.2); PROTHROMBIN TIME 14.2 SECONDS (11.4-13.6); PTT 28.7 SECONDS (22.2-34.7)
[2020-08-08 00:46] LABS: ALBUMIN 2.8 g/dL (3.4-5.0); BILIRUBIN - TOTAL 0.4 mg/dL (0.2-1.0); BUN/CREAT RATIO (CALC) 13.9 RATIO; CREATININE 0.79 mg/dL (0.51-0.95); GLOBULIN (CALCULATION) 3.2 g/dL; POTASSIUM 3.2 mmol/L (3.5-5.1)
[2020-08-08 00:49] LABS: LACTIC ACID 1.7 mmol/L (0.4-1.9)
[2020-08-08 00:54] LABS: PRO-BNP 59 pg/mL (<125)
[2020-08-08 02:03] LABS: MAGNESIUM 1.6 mg/dL (1.8-2.4); PHOSPHORUS 2.1 mg/dL (2.6-4.7)
[2020-08-08 09:08] LABS: BILIRUBIN NEGATIVE (NEGATIVE); BLOOD NEGATIVE Ery/uL (NEGATIVE); CLARITY CLEAR (CLEAR); COLOR YELLOW (YELLOW); GLUCOSE (U) 3+ mg/dL (NORMAL); LEUKOCYTES NEGATIVE Leu/uL (NEGATIVE); NITRITE NEGATIVE (NEGATIVE); PROTEIN 2+ mg/dL (NEGATIVE); UROBILINOGEN 0.2 mg/dL (0.2-1.0); pH 6.5 (5.0-9.0)
[2020-08-08 09:16] LABS: BACTERIA TRACE; YEAST PRESENT
--- NOTE | 2020-08-08 09:35 | NUR ---
PT. IS IN OBS. PLEASE CONSIDER INPT OR D/C. THANKSJACKELYN
[2020-08-08 12:26] LABS: BASOPHIL 0.2 % (0-2); EOSINOPHIL 0.2 % (0-5); HCT 33.3 % (37.0-47.0); HGB 10.8 g/dl (12.5-16.0); MCH 27.8 pg (25.0-31.0); MCHC 32.4 g/dL (32.0-36.0); MCV 85.6 fL (78.0-100.0); MONOCYTE 1.3 % (0-12); MPV 11.3 fL (6.0-9.5); NEUTROPHIL 88.7 % (41-80); NRBC 0; RBC 3.89 M/uL (4.20-5.40); RDW 17.2 % (11.5-14.0); WBC 5.3 K/uL (4.0-10.5)
[2020-08-08 12:29] LABS: PLT 67 K/uL (150-400)
[2020-08-08 12:51] LABS: ALBUMIN 3.1 g/dL (3.4-5.0); ALKALINE PHOSHATASE 251 U/L (46-116); ALT 39 U/L (14-59); AST 37 U/L (15-37); BILIRUBIN - TOTAL 0.6 mg/dL (0.2-1.0); BUN 18 mg/dL (7-18); CHLORIDE 94 mmol/L (98-107); CO2 (BICARBONATE) 24 mmol/L (21-32); CREATININE 0.72 mg/dL (0.51-0.95); GLOBULIN (CALCULATION) 3.6 g/dL; POTASSIUM 4.6 mmol/L (3.5-5.1); TOTAL PROTEIN 6.7 g/dL (6.4-8.2)
[2020-08-08 12:54] LABS: GLUCOSE >750 mg/dL (74-106)
--- NOTE | 2020-08-09 00:41 | NUR ---
PATIENT HAS ORDERS TO TRANSFER TO ICU FOR INSULIN DRIP DUE TO HIGH GLUCOSE READINGS PER DATA CENTER MANAGER.
[2020-08-09 05:18] LABS: BASOPHIL 0.1 % (0-2); EOSINOPHIL 0.1 % (0-5); HGB 9.9 g/dl (12.5-16.0); LYMPHOCYTE 16.8 % (15-48); MCH 27.8 pg (25.0-31.0); MCV 84.3 fL (78.0-100.0); MONOCYTE 6.7 % (0-12); MPV 10.8 fL (6.0-9.5); NEUTROPHIL 75.9 % (41-80); NRBC 0; RBC 3.56 M/uL (4.20-5.40); RDW 17.1 % (11.5-14.0); WBC 7.7 K/uL (4.0-10.5)
[2020-08-09 05:46] LABS: PLT 87 K/uL (150-400)
[2020-08-09 05:51] LABS: BUN/CREAT RATIO (CALC) 20.6 RATIO; CREATININE 1.02 mg/dL (0.51-0.95); POTASSIUM 3.4 mmol/L (3.5-5.1)
--- NOTE | 2020-08-09 11:29 | NUR ---
PT LIVES WITH SPOUSE; REPORTS SHE HAS HOME HEALTH THINKS [facility] NOT SURE; PLEASE ADVISE OF ANY DISCHARGE NEEDS
--- NOTE | 2020-08-09 17:31 | NUR ---
1630 PATIENT STATES THAT SHE TAKES 12U OF REGULAR INSULIN WITH MEALS PLUS SSI. DR YEH NOTIFIED VIA TELEPHONE, ORDERED 10U OF REGULAR INSULIN PLUS SSI TO BE GIVEN WITH MEALS.
== END 2020-08-10 17:52 | disposition home or self-care (01) ==
LOC: FER 23:19 → FMS 08-08 01:19 → FICU 08-08 23:27 → FMS 08-09 07:56
PROVIDERS: Emergency Medicine; Nurse Practitioner; ADMIT Internal Medicine
DX: J44.1 Chronic obstructive pulmonary disease with (acute) exacerbation (principal); E11.65 Type 2 diabetes mellitus with hyperglycemia; D69.6 Thrombocytopenia, unspecified; E87.6 Hypokalemia; I48.91 Unspecified atrial fibrillation; I25.10 Atherosclerotic heart disease of native coronary artery without angina pectoris; J96.10 Chronic respiratory failure, unspecified whether with hypoxia or hypercapnia; E11.22 Type 2 diabetes mellitus with diabetic chronic kidney disease; N18.9 Chronic kidney disease, unspecified; I50.30 Unspecified diastolic (congestive) heart failure; Z20.822 Contact with and (suspected) exposure to COVID-19; D63.1 Anemia in chronic kidney disease; G47.30 Sleep apnea, unspecified; K21.9 Gastro-esophageal reflux disease without esophagitis; E11.43 Type 2 diabetes mellitus with diabetic autonomic (poly)neuropathy; K31.84 Gastroparesis; G89.29 Other chronic pain; M54.5 Low back pain; M54.9 Dorsalgia, unspecified; F41.9 Anxiety disorder, unspecified; F32.9 Major depressive disorder, single episode, unspecified; K74.60 Unspecified cirrhosis of liver; I73.81 Erythromelalgia; E66.9 Obesity, unspecified; Z68.41 Body mass index [BMI] 40.0-44.9, adult; Z79.01 Long term (current) use of anticoagulants; Z79.4 Long term (current) use of insulin; Z79.899 Other long term (current) drug therapy; Z88.0 Allergy status to penicillin; Z88.1 Allergy status to other antibiotic agents; Z88.5 Allergy status to narcotic agent; Z88.6 Allergy status to analgesic agent; Z88.8 Allergy status to other drugs, medicaments and biological substances; Z91.040 Latex allergy status; Z91.041 Radiographic dye allergy status; Z90.5 Acquired absence of kidney
CPT/HCPCS: 36415; 36600; 71045; 80048; 80053; 81001; 82009; 82803; 82962; 83605; 83690; 83735; 83880; 84100; 84484; 85025; 85610; 85730; 87040; 93005; 94010; 94640; 94664; C9113; G0378; J1100; J1170; J1200; J1642; J2550; J2930; J3411; J3475; J7120; J7512; U0002

== ENCOUNTER 2020-08-26 21:24 | Emergency (ER) | payer OTHER ==
[2020-08-26 22:59] LABS: BASOPHIL 0.6 % (0-2); EOSINOPHIL 2.3 % (0-5); HCT 36.3 % (37.0-47.0); HGB 12.1 g/dl (12.5-16.0); LYMPHOCYTE 31.3 % (15-48); MCHC 33.3 g/dL (32.0-36.0); MONOCYTE 5.9 % (0-12); MPV 9.8 fL (6.0-9.5); NEUTROPHIL 59.6 % (41-80); NRBC 0; RBC 4.32 M/uL (4.20-5.40); RDW 16.5 % (11.5-14.0); WBC 6.5 K/uL (4.0-10.5)
[2020-08-26 23:00] LABS: PLT 114 K/uL (150-400)
[2020-08-26 23:18] LABS: LACTIC ACID 2.1 mmol/L (0.4-1.9)
[2020-08-26 23:21] LABS: ALBUMIN 3.4 g/dL (3.4-5.0); BILIRUBIN - TOTAL 0.6 mg/dL (0.2-1.0); BUN/CREAT RATIO (CALC) 10.4 RATIO; CREATININE 1.06 mg/dL (0.51-0.95); GLOBULIN (CALCULATION) 3.2 g/dL; POTASSIUM 3.6 mmol/L (3.5-5.1); TOTAL PROTEIN 6.6 g/dL (6.4-8.2)
[2020-08-26 23:41] LABS: BILIRUBIN NEGATIVE (NEGATIVE); BLOOD NEGATIVE Ery/uL (NEGATIVE); CLARITY CLEAR (CLEAR); COLOR YELLOW (YELLOW); GLUCOSE (U) 2+ mg/dL (NORMAL); LEUKOCYTES NEGATIVE Leu/uL (NEGATIVE); NITRITE NEGATIVE (NEGATIVE); PROTEIN 3+ mg/dL (NEGATIVE); SPECIFIC GRAVITY 1.025 (1.001-1.030); UROBILINOGEN 0.2 mg/dL (0.2-1.0)
[2020-08-26 23:50] LABS: BACTERIA TRACE; URINARY RBC RARE; YEAST PRESENT
== END 2020-08-27 02:52 | disposition home or self-care (01) ==
LOC: FER 21:24
PROVIDERS: Emergency Medicine
DX: E11.65 Type 2 diabetes mellitus with hyperglycemia (principal); J44.9 Chronic obstructive pulmonary disease, unspecified; G89.29 Other chronic pain; F41.9 Anxiety disorder, unspecified; I50.9 Heart failure, unspecified; Z90.5 Acquired absence of kidney; E66.9 Obesity, unspecified; Z88.0 Allergy status to penicillin; Z88.1 Allergy status to other antibiotic agents; Z88.6 Allergy status to analgesic agent; Z88.5 Allergy status to narcotic agent; Z88.8 Allergy status to other drugs, medicaments and biological substances; Z91.041 Radiographic dye allergy status; Z91.040 Latex allergy status
CPT/HCPCS: 36415; 71045; 80053; 81001; 83605; 83690; 84484; 85025; J1170; J1200; J2550

== ENCOUNTER 2020-10-07 00:50 | Emergency (ER) | payer OTHER ==
[2020-10-07 01:27] LABS: BASOPHIL 0.5 % (0-2); EOSINOPHIL 6.2 % (0-5); HCT 33.7 % (37.0-47.0); HGB 11.2 g/dl (12.5-16.0); LYMPHOCYTE 30.5 % (15-48); MCH 28.3 pg (25.0-31.0); MCHC 33.2 g/dL (32.0-36.0); MCV 85.1 fL (78.0-100.0); MONOCYTE 8.4 % (0-12); MPV 11.1 fL (6.0-9.5); NEUTROPHIL 54.1 % (41-80); NRBC 0; RBC 3.96 M/uL (4.20-5.40); RDW 14.9 % (11.5-14.0); WBC 6.1 K/uL (4.0-10.5)
[2020-10-07 01:28] LABS: PLT 87 K/uL (150-400)
[2020-10-07 01:43] LABS: ALBUMIN 3.3 g/dL (3.4-5.0); BILIRUBIN - TOTAL 0.4 mg/dL (0.2-1.0); BUN/CREAT RATIO (CALC) 13.6 RATIO; CREATININE 1.18 mg/dL (0.51-0.95); GLOBULIN (CALCULATION) 2.7 g/dL; POTASSIUM 3.9 mmol/L (3.5-5.1)
[2020-10-07 01:50] LABS: PRO-BNP 107 pg/mL (<125)
[2021-03-07] MEDS ORDERED: LANTUS **100 UNITS/ IJ (08:21)
== END 2020-10-07 02:42 | disposition home or self-care (01) ==
LOC: FER 00:50
PROVIDERS: Emergency Medicine
DX: R09.1 Pleurisy (principal); G89.4 Chronic pain syndrome; I48.91 Unspecified atrial fibrillation; I11.0 Hypertensive heart disease with heart failure; I50.9 Heart failure, unspecified; E11.9 Type 2 diabetes mellitus without complications; I25.2 Old myocardial infarction; Z86.718 Personal history of other venous thrombosis and embolism; Z79.01 Long term (current) use of anticoagulants
CPT/HCPCS: 36415; 71045; 80053; 83880; 84484; 85025; 93005; J1170; J2550

== ENCOUNTER 2020-10-10 21:52 | Emergency (ER) | payer OTHER ==
[2021-03-07] MEDS ORDERED: LANTUS **100 UNITS/ IJ (08:21)
== END 2020-10-11 02:40 | disposition home or self-care (01) ==
LOC: FER 21:52
DX: R07.9 Chest pain, unspecified (principal); R06.02 Shortness of breath; R11.0 Nausea; I50.9 Heart failure, unspecified; E11.9 Type 2 diabetes mellitus without complications; J44.9 Chronic obstructive pulmonary disease, unspecified; Z88.0 Allergy status to penicillin; Z88.1 Allergy status to other antibiotic agents; Z88.5 Allergy status to narcotic agent; Z88.6 Allergy status to analgesic agent; Z88.8 Allergy status to other drugs, medicaments and biological substances; Z91.041 Radiographic dye allergy status
CPT/HCPCS: 36415; 71045; 84484; 85379; 93005; J2550

== ENCOUNTER 2020-10-16 20:19 | Emergency (ER) | payer OTHER ==
[2020-10-16 21:35] LABS: BASOPHIL 0.2 % (0-2); EOSINOPHIL 4.8 % (0-5); HCT 32.6 % (37.0-47.0); HGB 10.9 g/dl (12.5-16.0); LYMPHOCYTE 26.8 % (15-48); MCH 28.5 pg (25.0-31.0); MCHC 33.4 g/dL (32.0-36.0); MCV 85.1 fL (78.0-100.0); MONOCYTE 5.4 % (0-12); MPV 10.1 fL (6.0-9.5); NEUTROPHIL 62.4 % (41-80); NRBC 0; RBC 3.83 M/uL (4.20-5.40); RDW 14.7 % (11.5-14.0)
[2020-10-16 21:40] LABS: PLT 95 K/uL (150-400)
[2020-10-16 21:42] LABS: BILIRUBIN NEGATIVE (NEGATIVE); BLOOD NEGATIVE Ery/uL (NEGATIVE); CLARITY CLEAR (CLEAR); COLOR YELLOW (YELLOW); GLUCOSE (U) 1+ mg/dL (NORMAL); LEUKOCYTES NEGATIVE Leu/uL (NEGATIVE); NITRITE NEGATIVE (NEGATIVE); PROTEIN 2+ mg/dL (NEGATIVE); SPECIFIC GRAVITY 1.025 (1.001-1.030); UROBILINOGEN 0.2 mg/dL (0.2-1.0); pH 6.5 (5.0-9.0)
[2020-10-16 21:48] LABS: BACTERIA TRACE; URINARY WBC RARE
[2020-10-16 21:49] LABS: ALBUMIN 3.3 g/dL (3.4-5.0); BILIRUBIN - TOTAL 0.4 mg/dL (0.2-1.0); BUN/CREAT RATIO (CALC) 12.2 RATIO; CREATININE 0.82 mg/dL (0.51-0.95); GLOBULIN (CALCULATION) 3.2 g/dL; POTASSIUM 3.9 mmol/L (3.5-5.1); TOTAL PROTEIN 6.5 g/dL (6.4-8.2)
[2021-03-07] MEDS ORDERED: LANTUS **100 UNITS/ IJ (08:21)
== END 2020-10-16 22:21 | disposition home or self-care (01) ==
LOC: FER 20:19
PROVIDERS: Emergency Medicine
DX: R10.30 Lower abdominal pain, unspecified (principal); M54.9 Dorsalgia, unspecified; E11.9 Type 2 diabetes mellitus without complications; J44.9 Chronic obstructive pulmonary disease, unspecified; I50.9 Heart failure, unspecified; Z90.5 Acquired absence of kidney; R07.9 Chest pain, unspecified; Z88.0 Allergy status to penicillin; Z88.1 Allergy status to other antibiotic agents; Z88.5 Allergy status to narcotic agent; Z88.6 Allergy status to analgesic agent; Z88.8 Allergy status to other drugs, medicaments and biological substances; Z91.040 Latex allergy status; Z91.041 Radiographic dye allergy status; Z90.49 Acquired absence of other specified parts of digestive tract
CPT/HCPCS: 36415; 80053; 81001; 85025; J0595; J1642; J2270; J2550

== ENCOUNTER 2020-10-24 21:11 | Emergency (ER) | payer OTHER ==
[2021-03-07] MEDS ORDERED: LANTUS **100 UNITS/ IJ (08:21)
== END 2020-10-24 23:00 | disposition home or self-care (01) ==
LOC: FER 21:11
DX: R07.1 Chest pain on breathing (principal); G89.29 Other chronic pain; R06.02 Shortness of breath; E11.22 Type 2 diabetes mellitus with diabetic chronic kidney disease; N18.6 End stage renal disease; I50.9 Heart failure, unspecified; J44.9 Chronic obstructive pulmonary disease, unspecified; Z90.5 Acquired absence of kidney
CPT/HCPCS: 71045; 93005; 94664; 96372; J2270; J2550

== ENCOUNTER 2020-10-31 23:46 | Emergency (ER) | payer OTHER | END 2020-11-01 00:40 | disposition left against medical advice (07) | LOC: FER 23:46 | DX: R07.9 Chest pain, unspecified (principal); R06.02 Shortness of breath; Z53.8 Procedure and treatment not carried out for other reasons | CPT/HCPCS: 71045; 93005 ==

== ENCOUNTER 2020-11-04 01:59 | Emergency (ER) | payer OTHER ==
[2020-11-04 03:25] LABS: BASOPHIL 0.6 % (0-2); EOSINOPHIL 4.3 % (0-5); HCT 32.9 % (37.0-47.0); HGB 10.9 g/dl (12.5-16.0); LYMPHOCYTE 21.7 % (15-48); MCH 28.1 pg (25.0-31.0); MCHC 33.1 g/dL (32.0-36.0); MCV 84.8 fL (78.0-100.0); MONOCYTE 6.6 % (0-12); MPV 10.6 fL (6.0-9.5); NEUTROPHIL 66.6 % (41-80); NRBC 0; RBC 3.88 M/uL (4.20-5.40); RDW 15.4 % (11.5-14.0); WBC 5.2 K/uL (4.0-10.5)
[2020-11-04 03:27] LABS: PLT 78 K/uL (150-400)
[2020-11-04 03:45] LABS: ALBUMIN 3.4 g/dL (3.4-5.0); BILIRUBIN - TOTAL 0.5 mg/dL (0.2-1.0); BUN/CREAT RATIO (CALC) 13.3 RATIO; C-REACTIVE PROTEIN 2.4 mg/dL (<=0.90); CREATININE 0.83 mg/dL (0.51-0.95); GLOBULIN (CALCULATION) 3.1 g/dL; POTASSIUM 3.8 mmol/L (3.5-5.1); TOTAL PROTEIN 6.5 g/dL (6.4-8.2)
[2020-11-04 03:51] LABS: PRO-BNP 31 pg/mL (<125)
== END 2020-11-04 05:19 | disposition home or self-care (01) ==
LOC: FER 01:59
PROVIDERS: Emergency Medicine Emergency Medical Services
DX: R07.89 Other chest pain (principal); R06.02 Shortness of breath; J44.9 Chronic obstructive pulmonary disease, unspecified; E11.22 Type 2 diabetes mellitus with diabetic chronic kidney disease; N18.9 Chronic kidney disease, unspecified; I50.30 Unspecified diastolic (congestive) heart failure; Z79.4 Long term (current) use of insulin; Z91.041 Radiographic dye allergy status; Z88.0 Allergy status to penicillin; Z88.1 Allergy status to other antibiotic agents; Z88.6 Allergy status to analgesic agent; Z88.5 Allergy status to narcotic agent; Z88.8 Allergy status to other drugs, medicaments and biological substances; Z91.040 Latex allergy status
CPT/HCPCS: 36415; 71045; 80053; 83880; 84484; 85025; 86140; 93005; J1170; J1200; J1642; J2550; J2930

== ENCOUNTER 2020-11-09 22:45 | Emergency (ER) | payer OTHER | END 2020-11-10 05:25 | disposition home or self-care (01) | LOC: FER 22:45 | DX: S46.911A Strain of unspecified muscle, fascia and tendon at shoulder and upper arm level, right arm, initial encounter (principal); S70.02XA Contusion of left hip, initial encounter; S80.02XA Contusion of left knee, initial encounter; M79.632 Pain in left forearm; R10.9 Unspecified abdominal pain; R07.9 Chest pain, unspecified; E11.22 Type 2 diabetes mellitus with diabetic chronic kidney disease; N18.9 Chronic kidney disease, unspecified; J44.9 Chronic obstructive pulmonary disease, unspecified; I50.9 Heart failure, unspecified; Z90.5 Acquired absence of kidney; Z88.0 Allergy status to penicillin; Z88.1 Allergy status to other antibiotic agents; Z91.041 Radiographic dye allergy status; Z91.040 Latex allergy status; Z88.6 Allergy status to analgesic agent; W01.10XA Fall on same level from slipping, tripping and stumbling with subsequent striking against unspecified object, initial encounter; Y92.002 Bathroom of unspecified non-institutional (private) residence as the place of occurrence of the external cause; Z88.8 Allergy status to other drugs, medicaments and biological substances | CPT/HCPCS: 70450; 71250; 72125; 72170; 73030; 73552; 73560; J1170; J1200; J1642; J2550; J3360 ==

== ENCOUNTER 2021-02-03 20:49 | Emergency (ER) | payer OTHER ==
[2021-02-04 00:38] LABS: BASOPHIL 0.1 % (0-2); EOSINOPHIL 0.4 % (0-5); HCT 32.4 % (37.0-47.0); HGB 10.9 g/dl (12.5-16.0); LYMPHOCYTE 19.4 % (15-48); MCH 28.2 pg (25.0-31.0); MCHC 33.6 g/dL (32.0-36.0); MCV 83.7 fL (78.0-100.0); MONOCYTE 7.7 % (0-12); MPV 11.2 fL (6.0-9.5); NEUTROPHIL 71.8 % (41-80); NRBC 0; RBC 3.87 M/uL (4.20-5.40); RDW 15.9 % (11.5-14.0); WBC 7.2 K/uL (4.0-10.5)
[2021-02-04 00:42] LABS: PLT 95 K/uL (150-400)
[2021-02-04 01:03] LABS: ALBUMIN 3.3 g/dL (3.4-5.0); BILIRUBIN - TOTAL 0.5 mg/dL (0.2-1.0); BUN/CREAT RATIO (CALC) 19.2 RATIO; CREATININE 0.99 mg/dL (0.51-0.95); GLOBULIN (CALCULATION) 3.2 g/dL; POTASSIUM 3.5 mmol/L (3.5-5.1); TOTAL PROTEIN 6.5 g/dL (6.4-8.2)
[2021-02-04 01:26] LABS: CORONAVIRUS 2019 SARS-COV-2 NEGATIVE (NEGATIVE); INFLUENZA A NAA NEGATIVE (NEGATIVE)
[2021-02-04] MEDS ORDERED: PREDNISONE 20MG20 MG PO (01:35)
[2021-02-04] MEDS ORDERED: PROMETHAZINE HC25 MG PR (01:35)
[2021-03-07] MEDS ORDERED: LANTUS **100 UNITS/ IJ (08:21)
== END 2021-02-04 02:28 | disposition home or self-care (01) ==
LOC: FER 20:49
PROVIDERS: Emergency Medicine
DX: J44.1 Chronic obstructive pulmonary disease with (acute) exacerbation (principal); Z20.822 Contact with and (suspected) exposure to COVID-19; I50.9 Heart failure, unspecified; Z90.49 Acquired absence of other specified parts of digestive tract; Z90.710 Acquired absence of both cervix and uterus
CPT/HCPCS: 36415; 36600; 71045; 71250; 80053; 82803; 85025; J1170; J2270; J2550; J2930; U0002

== ENCOUNTER 2021-03-03 02:48 | Emergency (ER) | payer OTHER ==
[2021-03-03 03:35] LABS: BASOPHIL 0.3 % (0-2); EOSINOPHIL 2.2 % (0-5); HCT 30.4 % (37.0-47.0); HGB 9.9 g/dl (12.5-16.0); LYMPHOCYTE 14.4 % (15-48); MCH 28.1 pg (25.0-31.0); MCHC 32.6 g/dL (32.0-36.0); MCV 86.4 fL (78.0-100.0); MONOCYTE 7.1 % (0-12); MPV 9.9 fL (6.0-9.5); NEUTROPHIL 75.3 % (41-80); NRBC 0; PLT 108 K/uL (150-400); RBC 3.52 M/uL (4.20-5.40); RDW 16.8 % (11.5-14.0); WBC 9.8 K/uL (4.0-10.5)
[2021-03-03 03:51] LABS: ALBUMIN 2.7 g/dL (3.4-5.0); BILIRUBIN - TOTAL 0.5 mg/dL (0.2-1.0); BUN/CREAT RATIO (CALC) 18.9 RATIO; CREATININE 1.06 mg/dL (0.51-0.95); GLOBULIN (CALCULATION) 3.4 g/dL; POTASSIUM 3.7 mmol/L (3.5-5.1); TOTAL PROTEIN 6.1 g/dL (6.4-8.2)
[2021-03-03 03:58] LABS: LACTIC ACID 1.7 mmol/L (0.4-1.9)
[2021-03-03 04:12] LABS: BILIRUBIN NEGATIVE (NEGATIVE); BLOOD 2+ Ery/uL (NEGATIVE); CLARITY CLEAR (CLEAR); COLOR YELLOW (YELLOW); GLUCOSE (U) NORMAL (NORMAL); LEUKOCYTES TRACE Leu/uL (NEGATIVE); NITRITE NEGATIVE (NEGATIVE); PROTEIN 1+ mg/dL (NEGATIVE); UROBILINOGEN 0.2 mg/dL (0.2-1.0)
[2021-03-03 04:24] LABS: SPERM PRESENT; URINARY WBC RARE
[2021-03-03 04:26] LABS: SQUAMOUS EPITHELIAL CELLS RARE
[2021-03-03] MEDS ORDERED: BACTRIM DS TAB1 EACH PO (04:54)
[2021-03-07] MEDS ORDERED: LANTUS **100 UNITS/ IJ (08:21)
== END 2021-03-03 05:08 | disposition home or self-care (01) ==
LOC: FER 02:48
PROVIDERS: Emergency Medicine
DX: R06.00 Dyspnea, unspecified (principal); N39.0 Urinary tract infection, site not specified; I50.9 Heart failure, unspecified; N18.9 Chronic kidney disease, unspecified; J44.9 Chronic obstructive pulmonary disease, unspecified; Z20.822 Contact with and (suspected) exposure to COVID-19
CPT/HCPCS: 36415; 71045; 80053; 81001; 83605; 84145; 84484; 85025; 87040; 93005; J2550; U0002

== ENCOUNTER 2021-03-04 23:55 | Emergency (ER) | payer OTHER ==
[~2021-03-04 23:55] MED LIST changes: +BACTRIM DS TAB1 EACH PO
[2021-03-05 00:29] LABS: BASOPHIL 0.4 % (0-2); EOSINOPHIL 2.8 % (0-5); HCT 29.9 % (37.0-47.0); HGB 9.7 g/dl (12.5-16.0); LYMPHOCYTE 24.5 % (15-48); MCHC 32.4 g/dL (32.0-36.0); MCV 86.4 fL (78.0-100.0); MONOCYTE 10.4 % (0-12); MPV 9.9 fL (6.0-9.5); NEUTROPHIL 61.2 % (41-80); NRBC 0; PLT 102 K/uL (150-400); RBC 3.46 M/uL (4.20-5.40); RDW 16.6 % (11.5-14.0); WBC 5.4 K/uL (4.0-10.5)
[2021-03-05 00:48] LABS: ALBUMIN 2.4 g/dL (3.4-5.0); BILIRUBIN - TOTAL 0.4 mg/dL (0.2-1.0); BUN/CREAT RATIO (CALC) 14.4 RATIO; CREATININE 0.97 mg/dL (0.51-0.95); GLOBULIN (CALCULATION) 3.2 g/dL; POTASSIUM 2.7 mmol/L (3.5-5.1); TOTAL PROTEIN 5.6 g/dL (6.4-8.2)
[2021-03-05 00:55] LABS: PRO-BNP 97 pg/mL (<125)
[2021-03-05 00:56] LABS: LACTIC ACID 2.2 mmol/L (0.4-1.9)
[2021-03-05 01:40] LABS: BILIRUBIN NEGATIVE (NEGATIVE); BLOOD NEGATIVE Ery/uL (NEGATIVE); CLARITY CLEAR (CLEAR); COLOR YELLOW (YELLOW); GLUCOSE (U) 3+ mg/dL (NORMAL); LEUKOCYTES NEGATIVE Leu/uL (NEGATIVE); NITRITE NEGATIVE (NEGATIVE); PROTEIN 1+ mg/dL (NEGATIVE)
[2021-03-05 01:47] LABS: SQUAMOUS EPITHELIAL CELLS RARE; URINARY RBC RARE; URINARY WBC RARE
[2021-03-07] MEDS ORDERED: LANTUS **100 UNITS/ IJ (08:21)
== END 2021-03-05 05:25 | disposition home or self-care (01) ==
LOC: FER 23:55
PROVIDERS: Emergency Medicine Emergency Medical Services
DX: E11.65 Type 2 diabetes mellitus with hyperglycemia (principal); E11.22 Type 2 diabetes mellitus with diabetic chronic kidney disease; N18.4 Chronic kidney disease, stage 4 (severe); E87.6 Hypokalemia; R60.0 Localized edema; G89.29 Other chronic pain; I25.2 Old myocardial infarction; J44.9 Chronic obstructive pulmonary disease, unspecified; I50.9 Heart failure, unspecified; Z88.6 Allergy status to analgesic agent; Z88.0 Allergy status to penicillin; Z88.8 Allergy status to other drugs, medicaments and biological substances; Z88.1 Allergy status to other antibiotic agents; Z91.041 Radiographic dye allergy status
CPT/HCPCS: 36415; 71045; 80053; 81001; 83605; 83880; 84145; 84484; 85025; 86140; 87040; 87088; 93005; J1170; J1200; J1642; J1956; J2550

== ENCOUNTER 2021-03-19 02:14 | Emergency (ER) | payer OTHER ==
[~2021-03-19 02:14] MED LIST changes: +LANTUS **100 UNITS/ IJ
[2021-03-19 03:16] LABS: BASOPHIL 0.5 % (0-2); EOSINOPHIL 3.6 % (0-5); HCT 34.5 % (37.0-47.0); HGB 10.8 g/dl (12.5-16.0); LYMPHOCYTE 25.7 % (15-48); MCH 28.3 pg (25.0-31.0); MCHC 31.3 g/dL (32.0-36.0); MCV 90.3 fL (78.0-100.0); MONOCYTE 9.2 % (0-12); MPV 9.8 fL (6.0-9.5); NEUTROPHIL 60.2 % (41-80); NRBC 0; PLT 129 K/uL (150-400); RBC 3.82 M/uL (4.20-5.40); RDW 17.2 % (11.5-14.0); WBC 6.4 K/uL (4.0-10.5)
[2021-03-19 03:32] LABS: ALBUMIN 3.2 g/dL (3.4-5.0); BILIRUBIN - TOTAL 0.4 mg/dL (0.2-1.0); BUN/CREAT RATIO (CALC) 15.6 RATIO; CREATININE 1.22 mg/dL (0.51-0.95); GLOBULIN (CALCULATION) 3.7 g/dL; POTASSIUM 2.7 mmol/L (3.5-5.1); TOTAL PROTEIN 6.9 g/dL (6.4-8.2)
== END 2021-03-19 04:28 | disposition home or self-care (01) ==
LOC: FER 02:14
PROVIDERS: Emergency Medicine
DX: R07.89 Other chest pain (principal); I50.9 Heart failure, unspecified; J44.9 Chronic obstructive pulmonary disease, unspecified; N18.6 End stage renal disease; Z88.1 Allergy status to other antibiotic agents; Z88.6 Allergy status to analgesic agent; Z88.0 Allergy status to penicillin; Z88.8 Allergy status to other drugs, medicaments and biological substances; Z91.041 Radiographic dye allergy status
CPT/HCPCS: 36415; 71045; 80053; 84484; 85025; Q0169

== ENCOUNTER 2021-03-27 23:55 | Emergency (ER) | payer OTHER ==
[2021-03-28 01:12] LABS: BASOPHIL 0.7 % (0-2); HCT 30.4 % (37.0-47.0); HGB 9.8 g/dl (12.5-16.0); LYMPHOCYTE 27.3 % (15-48); MCH 28.2 pg (25.0-31.0); MCHC 32.2 g/dL (32.0-36.0); MCV 87.6 fL (78.0-100.0); MONOCYTE 7.2 % (0-12); MPV 9.3 fL (6.0-9.5); NEUTROPHIL 57.3 % (41-80); NRBC 0; RBC 3.47 M/uL (4.20-5.40); RDW 16.5 % (11.5-14.0); WBC 4.3 K/uL (4.0-10.5)
[2021-03-28 01:14] LABS: PLT 97 K/uL (150-400)
[2021-03-28 01:36] LABS: LACTIC ACID 1.4 mmol/L (0.4-1.9)
[2021-03-28 01:41] LABS: PRO-BNP 192 pg/mL (<125)
[2021-03-28 01:45] LABS: BILIRUBIN - TOTAL 0.4 mg/dL (0.2-1.0); BUN/CREAT RATIO (CALC) 10.6 RATIO; C-REACTIVE PROTEIN 1.9 mg/dL (<=0.90); CREATININE 0.85 mg/dL (0.51-0.95); GLOBULIN (CALCULATION) 3.2 g/dL; POTASSIUM 3.4 mmol/L (3.5-5.1); TOTAL PROTEIN 6.2 g/dL (6.4-8.2)
[2021-03-28 02:12] LABS: CORONAVIRUS 2019 SARS-COV-2 NEGATIVE (NEGATIVE); INFLUENZA A NAA NEGATIVE (NEGATIVE)
[2021-03-28] MEDS ORDERED: PROMETHEGA12.5 MG/SU PR (03:30)
[2021-03-28] MEDS ORDERED: HYDROCODONE-CH473 ML PO (03:30)
== END 2021-03-28 04:10 | disposition home or self-care (01) ==
LOC: FER 23:55
PROVIDERS: Emergency Medicine Emergency Medical Services
DX: R07.89 Other chest pain (principal); R06.02 Shortness of breath; R05.9 Cough, unspecified; I50.9 Heart failure, unspecified; J44.9 Chronic obstructive pulmonary disease, unspecified; N18.9 Chronic kidney disease, unspecified; Z79.01 Long term (current) use of anticoagulants; Z88.0 Allergy status to penicillin; Z88.6 Allergy status to analgesic agent; Z88.1 Allergy status to other antibiotic agents; Z88.8 Allergy status to other drugs, medicaments and biological substances; Z91.040 Latex allergy status; Z91.041 Radiographic dye allergy status; Z20.822 Contact with and (suspected) exposure to COVID-19
CPT/HCPCS: 36415; 71250; 80053; 83605; 83880; 84145; 84484; 85025; 86140; 87040; 93005; 94640; 94664; J1170; J1200; J2550; U0002